=== PATIENT | female | born 1995 | race Caucasian/White ===

== ENCOUNTER 2017-03-21 23:54 | Emergency (ER) | payer BC ==
--- NOTE | 2017-03-22 00:26 | EDM.PDOC ---
ED HPI GENERAL MEDICAL PROBLEM - General Chief Complaint: General Stated Complaint: Seizure Time Seen by Provider: 03/22/17 00:10 Source of Information: Reports: Patient, EMS History Limitations: Reports: No Limitations - History of Present Illness INITIAL COMMENTS - FREE TEXT/NARRATIVE: Diann comes to [facility] ED by EMS following a generalized seizure that lasted about 2 minutes. She has a PMH of major motor seizures since age 10, last physician visit with blood levels of anticonvulsants in December 2016. Her last breakthrough seizure was in July 2016. She reports no aura prior to episodes , and is currerntly reporting no sequelae. Current meds include Felbamate 1500 mg bid, Lamictal 450 mg bid, and Fluoxetine 20 mg qd, and she missed her pm dose of meds. Her general health is good according to mother by phone. - Related Data Allergies Allergy/AdvReac Type Severity Reaction Status Date / Time No Known Allergies Allergy Verified 03/22/17 00:10 Home Meds: Home Meds .Vitamins 1 tab PO ASDIRECTED 03/22/17 [History] FLUoxetine [PROzac] 1 cap PO DAILY 03/22/17 [History] Felbamate 2.5 tab PO BID 03/22/17 [History] lamoTRIgine [LaMICtal] 3 tab PO BID 03/22/17 [History] Past Medical History Neurological History: Reports: Seizure - Past Surgical History Musculoskeletal Surgical History: Reports: Other (See Below) (knee surgery) ED ROS GENERAL - Review of Systems Review Of Systems: ROS reveals no pertinent complaints other than HPI. ED EXAM, GENERAL - Physical Exam Exam: See Below Exam Limited By: No Limitations General Appearance: Alert, WD/WN, No Apparent Distress Eye Exam: Bilateral Eye: Normal Inspection, PERRL Ears: Normal External Exam, Normal TMs Nose: Normal Inspection Throat/Mouth: Normal Inspection, Normal Lips, Normal Gums, Normal Oropharynx, Normal Voice, No Airway Compromise Head: Atraumatic, Normocephalic Neck: Normal Inspection, Supple, Non-Tender, Full Range of Motion Respiratory/Chest: Lungs Clear, Normal Breath Sounds, Chest Non-Tender Cardiovascular: Regular Rate, Rhythm, No Murmur GI/Abdominal: Normal Bowel Sounds, Soft, Non-Tender, No Organomegaly, No Distention, No Mass Back Exam: Normal Inspection Extremities: Normal Inspection Neurological: Alert, Oriented, CN II-XII Intact, Normal Cognition, Normal Gait, No Motor/Sensory Deficits Psychiatric: Normal Affect, Normal Mood Skin Exam: Warm, Dry, Intact Lymphatic: No Adenopathy Course - Vital Signs Text/Narrative:: Diann remained stable at the [facility] ED. Her pm meds were administered before discharge. Screening labs including CBC, CMP, and UA were satisfactory. Anticonvulsant levels will be addressed by Neurologist after mother contacts in the am. Last Recorded V/S: Last Vital Signs Temp 36.4 C 03/21/17 23:55 Pulse 80 03/22/17 00:05 Resp 18 03/22/17 00:05 BP 119/79 03/22/17 00:05 Pulse Ox 100 03/22/17 00:05 - Orders/Labs/Meds Labs: Laboratory Tests 03/22/17 03/22/17 03/22/17 Range/Units 00:30 00:30 01:00 WBC 4.5 (4.5-12.0) X10-3/uL RBC 4.21 (3.23-5.20) x10(6)uL Hgb 13.1 (11.5-15.5) g/dL Hct 38.7 (30.0-51.3) % MCV 92.0 (80-96) fL MCH 31.2 (27.7-33.6) pg MCHC 33.9 (32.2-35.4) g/dL RDW 11.5 (11.5-15.5) % Plt Count 181 (125-369) X10(3)uL MPV 8.8 (7.4-10.4) fL Neut % (Auto) 67.2 (46-82) % Lymph % (Auto) 23.7 (13-37) % [place] % (Auto) 7.0 (4-12) % Eos % (Auto) 2 (1.0-5.0) % Baso % (Auto) 0 (0-2) % Neut # (Auto) 3.0 (1.6-8.3) # Lymph # (Auto) 1.1 (0.6-5.0) # [place] # (Auto) 0.3 (0.0-1.3) # Eos # (Auto) 0.1 (0.0-0.8) # Baso # (Auto) 0.0 (0.0-0.2) # Sodium 138 (135-145) mmol/L Potassium 4.2 (3.5-5.3) mmol/L Chloride 108 (100-110) mmol/L Carbon Dioxide 21 L (23-29) mmol/L BUN 8 (5-20) mg/dL Creatinine 0.5 (0.5-1.0) mg/dL Est Cr Clr Drug Dosing 202.27 mL/min Estimated GFR (MDRD) > 60 (>60) BUN/Creatinine Ratio 16.0 (9-20) Glucose 119 H (80-116) mg/dL Calcium 9.2 (8.2-10.1) mg/dL Total Bilirubin 0.4 (0.1-1.2) mg/dL AST 18 (5-27) IU/L ALT 13 L (14-26) IU/L Alkaline Phosphatase 50 L (56-112) IU/L Total Protein 7.9 (6.0-8.0) g/dL Albumin 4.9 H (3.2-4.5) g/dL Globulin 3.0 g/dL Albumin/Globulin Ratio 1.6 Urine Color Yellow (YELLOW) Urine Appearance Slightly cloudy (CLEAR) Urine pH 6.0 (5.0-6.5) Ur Specific [place] 1.025 (1.010-1.025) Urine Protein 30 H (NEGATIVE) mg/dL Urine Glucose (UA) Normal (NEGATIVE) mg/dL Urine Ketones Negative (NEGATIVE) mg/dL Urine Occult Blood Moderate H (NEGATIVE) Urine Nitrite Negative (NEGATIVE) Urine Bilirubin Negative (NEGATIVE) Urine Urobilinogen 1 H (NEGATIVE) mg/dL Ur Leukocyte Esterase Negative (NEGATIVE) Urine RBC 5-10 (0) Urine WBC 0-5 (0) Ur Squamous Epith Cells Many H (NS,R,O) Urine Bacteria Moderate H (NS) Urine Mucus Few H (NS) Departure - Departure Time of Disposition: 01:28 Disposition: Home, Self-Care 01 Condition: Good Clinical Impression: Epilepsy Qualifiers: Epilepsy type: generalized idiopathic Intractability: not intractable Status epilepticus: without status epilepticus Qualified Code(s): G40.309 - Generalized idiopathic epilepsy and epileptic syndromes, not intractable, without status epilepticus - Discharge Information Referrals: PCP,None [Primary Care Provider] - Forms: ED Department Discharge - Problem List & Annotations (1) Epilepsy SNOMED Code(s): 11160966 Code(s): G40.909 - EPILEPSY, UNSP, NOT INTRACTABLE, WITHOUT STATUS EPILEPTICUS Status: Acute Current Visit: Yes Annotation/Comment:: Diann remained stable at [facility] ED, and returned to campus dorm with roomates. Qualifiers: Epilepsy type: generalized idiopathic Intractability: not intractable Status epilepticus: without status epilepticus Qualified Code(s): G40.309 - Generalized idiopathic epilepsy and epileptic syndromes, not intractable, without status epilepticus - Problem List Review Problem List Initiated/Reviewed/Updated: Yes - Assessment/Plan Plan: Follow up with Neurology regarding seizurre management.
== END 2017-03-22 01:40 | disposition home or self-care (01) ==
LOC: FB.ED 23:54
DX: G40.309 Generalized idiopathic epilepsy and epileptic syndromes, not intractable, without status epilepticus (principal); Z79.899 Other long term (current) drug therapy
CPT/HCPCS: 36415; 80053; 81001; 85025; 99284